=== PATIENT | male | born 1955 | race African-American/Black ===

== ENCOUNTER 2018-05-09 09:29 | Emergency (ER) | payer MEDICARE, OTHER ==
[~2018-05-09] VITALS: Ht 195.6 cm; Wt 124.3 kg
[~2018-05-09 09:29] MED LIST: BISACODYL5 MG ORAL; CIPROFLOXACIN500 M2 ORAL; COLACE100 MG ORAL; CYCLOBENZAPRINE10 MG ORAL; ERYTHROMYCIN3.5 GM LEFT EYE; FLAGYL500 MG ORAL; IBUPROFEN600 MG ORAL; NIFEDICAL XL30 MG ORAL; PENICILLIN V P500 MG ORAL; PREDNISONE10 M2 PO; TAMIFLU75 MG PO; UNOBMED; VICODIN 5-5001 EACH PO; ZESTRIL5 MG PO
[2018-05-09] MEDS ORDERED: ASPIR 8181 MG ORAL (09:39)
--- NOTE | 2018-05-09 09:46 | NUR ---
ED Nurse Note: PT WALKED IN TO ER TODAY FROM HOME. AOX4. PT C/O LEFT SIDED NECK PAIN, 8/10 THAT RADIATES TO HEAD X 5 DAYS AGO. PT DENIES DIZZINESS AND HAS STEADY GAIT IN ER. PT STATES HE HAS HX OF STROKE X 1 YEARS AGO. ON ASSESSMENT, BP: 147/107, HR: 84. ASYMPTOMATIC FOR STROKE, AND NO SIGNS OF RESPIRATORY DISTRESS OR SOB.
[2018-05-09 09:50] VITALS: BP 147/107
--- NOTE | 2018-05-09 10:36 | Emergency Room Report ---
History of Present Illness General Chief Complaint: Neck Pain Source: Patient Present Illness HPI 62-year-old male with a history of prostate cancer presents with left-sided neck pain that started 5 days ago when he woke up sleeping in abnormal position , he reports he is concerned because he was told he might have metastases to his bones but then was cleared later of any metastases. Eyes any numbness, tingling, weakness, falls, traumatic injuries, blurred vision, slurred speech, any other complaints, he reports he tried ibuprofen with only partial relief. First the pain is worse when he presses on his left sternocleidomastoid muscle or rotates his neck to often. Allergies: Coded Allergies: No Known Allergies (Unverified , 05/21/12) Patient History Past Medical History: see triage record Reviewed Nursing Documentation: PMH: Agreed; PSxH: Agreed Nursing Documentation-PMH Past Medical History: No History, Except For Hx Hypertension: Yes Hx Pacemaker: No Hx Asthma: No Hx COPD: No Hx Diabetes: No Hx Cancer: No Hx Gastrointestinal Problems: No Hx Dialysis: No History Of Psychiatric Problem: No Hx Neurological Problems: No Hx Cerebrovascular Accident: Yes - 'mini stroke' x 5 Hx Seizures: No Review of Systems All Other Systems: negative except mentioned in HPI Physical Exam Vital Signs Date Time Temp Pulse Resp B/P (MAP) Pulse Ox O2 Delivery O2 Flow Rate FiO2 05/09/18 09:33 97.9 86 16 147/85 98 Room Air Sp02 EP Interpretation: reviewed, normal General Appearance: no apparent distress, alert, non-toxic Head: normocephalic Eyes: bilateral eye normal inspection, bilateral eye PERRL, bilateral eye EOMI ENT: normal ENT inspection, hearing grossly normal, normal pharynx, no angioedema, normal voice, TMs + canals normal, uvula midline, moist mucus membranes Neck: normal inspection, full range of motion, supple, thyroid normal, no meningismus, no bony tend, no carotid bruits, supple/symm/no masses, tender lateral - Left sternocleidomastoid muscle, no overlying erythema warmth or deformities or crepitus Respiratory: chest non-tender, lungs clear, normal breath sounds, chest symmetrical, palpation of chest normal Cardiovascular #1: normal peripheral pulses, regular rate, rhythm Cardiovascular #2: 2+ radial (R), 2+ radial (L) Gastrointestinal: normal inspection, non tender, soft, no mass, no guarding, no rebound Rectal: deferred Genitourinary: normal inspection, no CVA tenderness Musculoskeletal: back normal, gait/station normal, normal range of motion, non- tender, no calf tenderness Neurologic: alert, responsive, documentation spec III-XII nml as tested, motor strength/tone normal, sensory intact, speech normal Psychiatric: judgement/insight normal, memory normal, mood/affect normal Skin: normal color, no rash, warm/dry, normal turgor Lymphatic: no adenopathy Medical Decision Making Diagnostic Impression: Primary Impression: Neck pain ER Course XR shows degenerative changes, no bony mets, will dc with reassurance, PMD f/u, dx msk neck pain Other X-Ray Diagnostic Results Other X-Ray Diagnostic Results : X-Ray ordered: c-spine # of Views/Limited Vs Complete: 3 View Indication: Pain EP Interpretation: Yes Interpretation: no dislocation, no soft tissue swelling, no fractures Impression: No acute disease Electronically Signed by: Elmer Carson MD Last Vital Signs Date Time Temp Pulse Resp B/P (MAP) Pulse Ox O2 Delivery O2 Flow Rate FiO2 05/09/18 09:50 98.2 78 18 147/107 96 Room Air Disposition: HOME, SELF-CARE Condition: Stable Referrals: NON PHYSICIAN (PCP) ELMER CARSON M.D May 09, 2018 10:36
[2018-05-09] MEDS ORDERED: Ketorolac 60mg Inj IM ONE (10:45)
[2018-05-09] MEDS ORDERED: Cyclobenzaprine 10mg Tab ORAL ONE (10:45)
--- NOTE | 2018-05-09 11:05 | NUR ---
ED Nurse Note: RADIOLOGY CALLED FOR XRAY
--- NOTE | 2018-05-09 11:40 | NUR ---
ED Nurse Note: PT BACK FROM CT VIA JENNIFER
[2018-05-09] MEDS ORDERED: IBUPROFEN600 MG ORAL (11:48)
[2018-05-09] MEDS ORDERED: CYCLOBENZAPRINE10 MG ORAL (11:48)
[2018-05-09 11:54] VITALS: BP 138/91
--- NOTE | 2018-05-09 11:55 | NUR ---
ER Nurse Note: PT LAYING PEACEFULLY IN BED IN NAD. AOX4. PRESCRIPTIONS AND DISCHARGE PAPERWORK EXPLAINED TO PT. PT VERBALIZES UNDERSTANDING AND ALL QUESTIONS WERE ANSWERED. PRESCRIPTION AND DISCHARGE PAPERWORK GIVEN TO PT AND ID WRISTBAND REMOVED. PT WALKED OUT OF ER WITH STEADY GAIT AND ALL BELONGINGS.
--- NOTE | 2018-05-09 12:02 | Diagnostic Imaging Report ---
Indication: Neck Pain Findings: 3 views of the cervical spine were obtained. Moderate osteophyte formation involving the vertebral endplates demonstrated multiple levels projecting anteriorly mostly. Alignment is normal. Bones are osteopenic. No obvious fracture identified. IMPRESSION: Moderate degenerative endplate spur formation
== END 2018-05-09 11:56 | disposition home or self-care (01) ==
LOC: EMR 10:14
DX: M54.2 Cervicalgia (principal); I10 Essential (primary) hypertension; Z86.73 Personal history of transient ischemic attack (TIA), and cerebral infarction without residual deficits
CPT/HCPCS: 72040; 96372; 99283

== ENCOUNTER 2019-02-28 13:03 | Emergency (ER) | payer MEDICARE, OTHER ==
[~2019-02-28] VITALS: Ht 195.6 cm; Wt 117.0 kg
[~2019-02-28 13:03] MED LIST changes: +ASPIR 8181 MG ORAL
--- NOTE | 2019-02-28 13:15 | NUR ---
ED Nurse Note: pt walked in c/o "popping ears" and flu like sx, pt reports he has been having cough with phlegm and congestion, difficulty breathing at night with chest discomfort for past five days and has sensation of ears popping and difficult to hear. no active cough at this time, will cont monitor.
[2019-02-28] MEDS ORDERED: MULTIVITAMINS1 EAC2 ORAL (13:25)
[2019-02-28 13:45] VITALS: BP 133/86
--- NOTE | 2019-02-28 14:20 | NUR ---
ED Nurse Note: pt resting at this time, vss, no sx distress noted, will cont monitor. safety precautions in place, pt advised to notify staff if needed assist.
[2019-02-28 14:36] LABS: BASOPHILS % (AUTO) 1.7 % (0.0-2.0); EOSINOPHILS % (AUTO) 1.6 % (0.0-3.0); HEMATOCRIT 43.5 % (42.0-52.0); LYMPHOCYTES % (AUTO) 31.9 % (20.0-45.0); MEAN CORPUSCULAR VOLUME 83 FL (80-99); MONOCYTES % (AUTO) 5.6 % (1.0-10.0); NEUTROPHILS % (AUTO) 59.2 % (45.0-75.0); PLATELET COUNT 293 K/UL (150-450); RED BLOOD COUNT 5.23 M/UL (4.70-6.10); RED CELL DISTRIBUTION WIDTH 12.5 % (11.6-14.8); WHITE BLOOD COUNT 4.9 K/UL (4.8-10.8)
--- NOTE | 2019-02-28 14:36 | Emergency Room Report ---
History of Present Illness General Chief Complaint: General Complaint Source: Patient Present Illness HPI Patient presents with fullness in his head and ringing in his ears that is been going on for several days. He is taking medication for blood pressure at this time. He took them before coming in today. He believes his blood pressure is part of the problem. He is undergoing a tremendous amount of stress. Status post recent prostatectomy. PSA was still elevated. For 3 months he has been taking Lupron. He is going to be seeing the doctor for radiation therapy soon. Patient is also complaining about some chest pain that is intermittent. He is talks about it going from his right side of his chest to the bottom left side. Is not exertional. Today there was some radiation to his left arm. He is not certain what brings this pain on. He denies pain at this time. Part of the stress is being and involved in a difficult marriage with a 36-year- old. Patient still smokes and also uses THC. Allergies: Coded Allergies: No Known Allergies (Unverified , 05/21/12) Patient History Past Medical History: see triage record Past Surgical History: other - Prostatectomy Social History: Reports: smoking, drug use - THC Social History Narrative telemarketing and in stressful marriage Reviewed Nursing Documentation: PMH: Agreed; PSxH: Agreed Nursing Documentation-PM Past Medical History: No History, Except For Hx Hypertension: Yes Hx Pacemaker: No Hx Asthma: No Hx COPD: No Hx Diabetes: No Hx Cancer: No Hx Gastrointestinal Problems: No Hx Dialysis: No Hx Neurological Problems: No Hx Cerebrovascular Accident: Yes - 'mini stroke' x 5 Hx Seizures: No Review of Systems All Other Systems: negative except mentioned in HPI Physical Exam Vital Signs Date Time Temp Pulse Resp B/P (MAP) Pulse Ox O2 Delivery O2 Flow Rate FiO2 02/28/19 13:07 98.6 104 17 177/80 (112) 95 Room Air Sp02 EP Interpretation: reviewed, normal General Appearance: well appearing, no apparent distress, GCS 15 Head: normocephalic, atraumatic Eyes: bilateral eye normal inspection, bilateral eye PERRL, bilateral eye EOMI ENT: normal pharynx, TMs + canals normal, moist mucus membranes Neck: supple Respiratory: lungs clear, normal breath sounds Cardiovascular #1: regular rate, rhythm Cardiovascular #2: 2+ radial (R) Gastrointestinal: normal inspection, normal bowel sounds, non tender, no mass, non-distended Musculoskeletal: back normal, gait/station normal, normal range of motion Neurologic: alert, oriented x3, grossly normal Psychiatric: mood/affect normal Skin: no rash, warm/dry Medical Decision Making Diagnostic Impression: Primary Impression: Labile hypertension Additional Impressions: Stress Prostate cancer Tinnitus Qualified Codes: H93.13 - Tinnitus, bilateral ER Course Patient presents with head fullness and ringing in his ears with decreased hearing for several days. Differential includes otitis media, serous otitis, congestion, hypertension amongst others. Patient will be evaluated EKG, chest x -ray and labs. EKG is very important because he is also complaining about some left-sided chest pain radiated down his left arm recently. Patient is placed on a city bailiff. The patient will be given a dose of an antihistamine. EKG normal sinus rhythm normal EKG. chest x-ray normal. Labs unremarkable. Patient symptoms improved with loratadine. In addition blood pressure is within normal limits. Discussed treatment plan with patient. No medical emergency at this time. Patient stable for outpatient observation and treatment. Last Vital Signs Date Time Temp Pulse Resp B/P (MAP) Pulse Ox O2 Delivery O2 Flow Rate FiO2 02/28/19 13:45 98.6 75 18 133/86 98 Room Air EKG Diagnostic Results Rate: normal Rhythm: NSR ST Segments: no acute changes Rhythm Strip Diag. Results EP Interpretation: yes Rhythm: NSR, no PVC's, no ectopy Chest X-Ray Diagnostic Results Chest X-Ray Diagnostic Results : Chest X-Ray Ordered: Yes # of Views/Limited/Complete: 1 View Indication: Other EP Interpretation: Yes Interpretation: no consolidation, no effusion, no pneumothorax Impression: No acute disease Electronically Signed by: Electronically signed by Los Swenson MD Last Vital Signs Date Time Temp Pulse Resp B/P (MAP) Pulse Ox O2 Delivery O2 Flow Rate FiO2 02/28/19 15:39 98.9 77 16 140/88 100 Room Air Status: improved Disposition: HOME, SELF-CARE Condition: Improved Scripts Chlorpheniramine Maleate (CHLOR-TRIMETON) 4 Mg Tablet 4 MG PO Q6HR PRN for ear ringing/congestion, #20 TAB Prov: Los Swenson MD 02/28/19 Referrals: NON PHYSICIAN (PCP) Los Swenson MD Feb 28, 2019 14:36
[2019-02-28 14:57] LABS: APPEARANCE,URINE CLEAR; BILIRUBIN, URINE NEGATIVE (NEGATIVE); COLOR,URINE YELLOW; GLUCOSE, URINE (UA) NEGATIVE (NEGATIVE); KETONES,URINE NEGATIVE (NEGATIVE); LEUKOCYTE ESTERASE ,URINE NEGATIVE (NEGATIVE); NITRITE,URINE NEGATIVE (NEGATIVE); PH,URINE 7 (4.5-8.0); PROTEIN,URINE NEGATIVE (NEGATIVE); UROBILINOGEN,URINE NORMAL MG/DL (0.0-1.0)
[2019-02-28 14:57] LABS: ANION GAP 7 mmol/L (5-15); BLOOD UREA NITROGEN 9 mg/dL (7-18); CALCIUM 9.8 MG/DL (8.5-10.1); CARBON DIOXIDE 29 MMOL/L (21-32); CHLORIDE 108 MMOL/L (98-107); SODIUM 144 MMOL/L (136-145)
[2019-02-28 15:08] LABS: ALANINE AMINOTRANSFERASE 25 U/L (12-78); ALBUMIN/GLOBULIN RATIO 1.5 (1.0-2.7); ALKALINE PHOSPHATASE 48 U/L (46-116); ASPARTATE AMINO TRANSFERASE 15 U/L (15-37); BILIRUBIN,TOTAL 1.2 MG/DL (0.2-1.0); CREATINE KINASE 130 U/L (26-308)
[2019-02-28 15:21] LABS: BILIRUBIN,DIRECT 0.3 MG/DL (0.0-0.3)
[2019-02-28 15:26] VITALS: BP 123/68
[2019-02-28] MEDS ORDERED: CHLOR-TRIMETON4 MG PO (15:26)
--- NOTE | 2019-02-28 15:31 | Diagnostic Imaging Report ---
EXAM: XR Chest, 1 View CLINICAL HISTORY: CP TECHNIQUE: Frontal view of the chest. COMPARISON: Chest x-ray 9 17 16 FINDINGS: Lungs: Unremarkable. No consolidation. Pleural space: Unremarkable. No pneumothorax. Heart: Unremarkable. No cardiomegaly. Mediastinum: Unremarkable. Bones joints: Unremarkable. IMPRESSION: No acute process.
--- NOTE | 2019-02-28 15:37 | NUR ---
ED Nurse Note: pt cleared to be d/c per ERMD, pt discharge and aftercare instruction provided w/ prescription, pt education done via discussion and handout, pt advised to follow up with pcp or return to ED if changes in condition, vss, ambulatory w/ steady gait, left w/ all belongings, iv d/c, pt id band given to pt per pt's req, pt advised not to throw away pt's id band in trash, pt verbalized understanding and agrees with plan of care.
[2019-02-28 15:39] VITALS: BP 140/88
--- NOTE | 2019-03-01 16:18 | Cardiology Report ---
APPROVED REPORT EKG Measurement Heart [id number] Normal sinus rhythm Normal ECG
== END 2019-02-28 15:39 | disposition home or self-care (01) ==
LOC: EMR 13:40
DX: I10 Essential (primary) hypertension (principal); F43.9 Reaction to severe stress, unspecified; H93.13 Tinnitus, bilateral; C61 Malignant neoplasm of prostate; Z90.79 Acquired absence of other genital organ(s); F17.200 Nicotine dependence, unspecified, uncomplicated; Z86.73 Personal history of transient ischemic attack (TIA), and cerebral infarction without residual deficits; R07.9 Chest pain, unspecified; F12.90 Cannabis use, unspecified, uncomplicated
CPT/HCPCS: 36415; 71045; 80053; 80307; 81003; 82248; 82550; 83880; 84484; 85025; 85610; 85730; 93005; 99284

== ENCOUNTER 2019-06-03 09:47 | Emergency (ER) | payer MEDICARE, OTHER ==
[~2019-06-03] VITALS: Ht 195.6 cm; Wt 119.3 kg
[~2019-06-03 09:47] MED LIST changes: +CHLOR-TRIMETON4 MG PO; +MULTIVITAMINS1 EAC2 ORAL
--- NOTE | 2019-06-03 09:50 | NUR ---
pt. in the bathroom
--- NOTE | 2019-06-03 09:55 | NUR ---
ED Nurse Note: patient walked into ED from home, reports he got radiation today for this metastatic prostate cancer. patient c/o urinary frequency, urgency, and hematuria, and right flank pain today. his [place] doctor recommended him to come to ED. patient is alert awake x4 ambulatory steady gait, on a hopsital gown. able to speak in full sentences, in no acute distress. pillows provided.
[2019-06-03 10:14] LABS: APPEARANCE,URINE CLEAR; BILIRUBIN, URINE NEGATIVE (NEGATIVE); COLOR,URINE PALE YELLOW; GLUCOSE, URINE (UA) NEGATIVE (NEGATIVE); KETONES,URINE NEGATIVE (NEGATIVE); LEUKOCYTE ESTERASE ,URINE 1+ (NEGATIVE); NITRITE,URINE NEGATIVE (NEGATIVE); PH,URINE 7 (4.5-8.0); PROTEIN,URINE NEGATIVE (NEGATIVE); UROBILINOGEN,URINE NORMAL MG/DL (0.0-1.0)
[2019-06-03] MEDS ORDERED: Omnipaque-300 100ml vial INJ PRN (10:15)
--- NOTE | 2019-06-03 10:15 | Emergency Room Report ---
History of Present Illness General Chief Complaint: Male Urogenital Problems Source: Patient Present Illness HPI 63-year-old male history of prostate cancer undergoing radiation, presents with dysuria, started yesterday, Right flank pain, achy in nature no aggravating alleviating factors severity is moderate, constant patient presents for evaluation Allergies: Coded Allergies: No Known Allergies (Unverified , 05/21/12) Patient History Past Medical History: see triage record Reviewed Nursing Documentation: PMH: Agreed; PSxH: Agreed Nursing Documentation-PMH Past Medical History: No History, Except For Hx Hypertension: Yes - pneumothorax Hx Pacemaker: No Hx Asthma: No Hx COPD: No Hx Diabetes: No Hx Cancer: Yes Hx Gastrointestinal Problems: No Hx Dialysis: No Hx Neurological Problems: No Hx Cerebrovascular Accident: Yes - x 5 Hx Seizures: No Review of Systems All Other Systems: negative except mentioned in HPI Physical Exam Vital Signs Date Time Temp Pulse Resp B/P (MAP) Pulse Ox O2 Delivery O2 Flow Rate FiO2 06/03/19 09:50 97.3 82 Sp02 EP Interpretation: reviewed, normal General Appearance: well appearing, no apparent distress, alert Head: normocephalic, atraumatic Eyes: bilateral eye PERRL, bilateral eye EOMI ENT: uvula midline, moist mucus membranes Neck: supple, thyroid normal, supple/symm/no masses Respiratory: lungs clear, no respiratory distress, no retraction, no accessory muscle use Cardiovascular #1: normal peripheral pulses, regular rate, rhythm, no edema, no gallop, no murmur Gastrointestinal: non tender, soft, no guarding, no rebound Genitourinary: CVA tenderness (R) Musculoskeletal: normal inspection Neurologic: alert, oriented x3 Psychiatric: mood/affect normal Skin: no rash, warm/dry Medical Decision Making Diagnostic Impression: Primary Impression: UTI (urinary tract infection) Qualified Codes: N30.00 - Acute cystitis without hematuria Additional Impressions: Elevated lipase Pancreatitis Qualified Codes: K85.90 - Acute pancreatitis without necrosis or infection, unspecified ER Course 63-year-old male presents with right flank pain, dysuria, differential diagnosis includes UTI, pyelonephritis, abdominal pain Given history of recent chemo, now with right flank pain, will start antibiotics empirically will check for infection additionally will obtain advanced imaging to see if there is a foci for infection Patient with UTI ceftriaxone given Patient with an elevated lipase, normal liver enzymes, counseled patient that he needs to be admitted to the hospital for possible pancreatitis which may be a medication side effect versus radiation side effect Patient states he is following up with his doctor tomorrow and wants to leave AGAINST MEDICAL ADVICE The patient has requested to leave the ED against medical advice. The patient reason(s) for leaving include, but are not limited to, the following: doesn't want to be admitted. I believe this patient is of sound mind and competent to refuse medical care. The patient is responding and asking questions appropriately. The patient is oriented to person, place and time. The patient is not psychotic, delusional, suicidal, homicidal or hallucinating. The patient demonstrates a normal mental capacity to make decisions regarding their healthcare. The patient is clinically sober and does not appear to be under the influence of any illicit drugs at this time. The patient has been advised of the risks, in layman terms, of leaving AMA which include, but are not limited to , coma, permanent disability, loss of current lifestyle, delay in diagnosis. Alternatives have been offered - the patient remains steadfast in their wish to leave. The patient has been advised that should they change their mind they are welcome to return to this hospital, or any other, at any time. The patient understands that in no way does an AMA discharge mean that I do not want them to have the best medical care available. To this end, I have provided appropriate prescriptions, referrals, and discharge instructions. The patient did sign AMA paperwork. The above discussion was witnessed by another member of staff. Laboratory Tests Test 06/03/19 09:00 06/03/19 10:10 Urine Color Pale yellow Urine Appearance Clear Urine pH 7 (4.5-8.0) Urine Specific Howard 1.005 (1.005-1.035) Urine Protein Negative (NEGATIVE) Urine Glucose (UA) Negative (NEGATIVE) Urine Ketones Negative (NEGATIVE) Urine Blood 2+ (NEGATIVE) H Urine Nitrite Negative (NEGATIVE) Urine Bilirubin Negative (NEGATIVE) Urine Urobilinogen Normal MG/DL (0.0-1.0) Urine Leukocyte Esterase 1+ (NEGATIVE) H Urine RBC 0-2 /HPF (0 - 0) H Urine WBC 0-2 /HPF (0 - 0) Urine Squamous Epithelial Cells Occasional /LPF Urine Bacteria Occasional /HPF (NONE) White Blood Count 3.2 K/UL (4.8-10.8) L Red Blood Count 5.11 M/UL (4.70-6.10) Hemoglobin 14.3 G/DL (14.2-18.0) Hematocrit 43.7 % (42.0-52.0) Mean Corpuscular Volume 85 FL (80-99) Mean Corpuscular Hemoglobin 28.0 PG (27.0-31.0) Mean Corpuscular Hemoglobin Concent 32.8 G/DL (32.0-36.0) Red Cell Distribution Width 12.9 % (11.6-14.8) Platelet Count 309 K/UL (150-450) Mean Platelet Volume 6.0 FL (6.5-10.1) L Neutrophils (%) (Auto) % (45.0-75.0) Lymphocytes (%) (Auto) % (20.0-45.0) Monocytes (%) (Auto) % (1.0-10.0) Eosinophils (%) (Auto) % (0.0-3.0) Basophils (%) (Auto) % (0.0-2.0) Differential Total Cells Counted 100 Neutrophils % (Manual) 66 % (45-75) Lymphocytes % (Manual) 21 % (20-45) Monocytes % (Manual) 11 % (1-10) H Eosinophils % (Manual) 2 % (0-3) Basophils % (Manual) 0 % (0-2) Band Neutrophils 0 % (0-8) Platelet Estimate Adequate Platelet Morphology Normal Red Blood Cell Morphology Normal Sodium Level 140 MMOL/L (136-145) Potassium Level 4.2 MMOL/L (3.5-5.1) Chloride Level 106 MMOL/L (98-107) Carbon Dioxide Level 25 MMOL/L (21-32) Anion Gap 9 mmol/L (5-15) Blood Urea Nitrogen 16 mg/dL (7-18) Creatinine 0.9 MG/DL (0.55-1.30) Estimate Glomerular Filtration Rate > 60 mL/min (>60) Glucose Level 93 MG/DL (74-106) Calcium Level 9.5 MG/DL (8.5-10.1) Total Bilirubin 0.7 MG/DL (0.2-1.0) Aspartate Amino Transferase (AST) 16 U/L (15-37) Alanine Aminotransferase (ALT) 28 U/L (12-78) Alkaline Phosphatase 56 U/L (46-116) Total Protein 7.5 G/DL (6.4-8.2) Albumin 4.0 G/DL (3.4-5.0) Globulin 3.5 g/dL Albumin/Globulin Ratio 1.1 (1.0-2.7) Lipase 1879 U/L (73-393) H Last Vital Signs Date Time Temp Pulse Resp B/P (MAP) Pulse Ox O2 Delivery O2 Flow Rate FiO2 06/03/19 09:50 97.3 82 Disposition: HOME, SELF-CARE Condition: Stable Scripts Cephalexin* (KEFLEX*) 500 Mg Capsule 500 MG ORAL EVERY 6 HOURS, #28 CAP Prov: Jarett Kelly MD 06/03/19 Lidocaine Patch* (Lidoderm Patch*) 1 Each Adh..patch 1 PATCH TOPIC DAILY, #7 PATCH 0 Refills Patch(es) may remain in place for up to 12 hours in any 24-hour period. Prov: Jarett Kelly MD 06/03/19 Referrals: ANUJA PHILLIPS MD (PCP) Patient Instructions: Acute Pancreatitis, [id number], Lipase Test, Urinary Tract Infection Additional Instructions: The patient was provided with discharge instructions, notified to follow-up with a primary care doctor and or specialist in the next 24-48 hours, and to return to the ED if they have worsening of their symptoms. Please note that this report is being documented using [employer] technology. This can lead to erroneous entry secondary to incorrect interpretation by the dictating instrument. Jarett Kelly MD Jun 03, 2019 10:15
[2019-06-03 10:29] LABS: HEMATOCRIT 43.7 % (42.0-52.0); HEMOGLOBIN 14.3 G/DL (14.2-18.0); MEAN CORPUSCULAR VOLUME 85 FL (80-99); PLATELET COUNT 309 K/UL (150-450); RED BLOOD COUNT 5.11 M/UL (4.70-6.10); RED CELL DISTRIBUTION WIDTH 12.9 % (11.6-14.8); WHITE BLOOD COUNT 3.2 K/UL (4.8-10.8)
[2019-06-03] MEDS ORDERED: cefTRIAXone 1 GM in NS 55 ML IVPB ONE (10:45)
[2019-06-03 10:58] LABS: ALANINE AMINOTRANSFERASE 28 U/L (12-78); ALBUMIN/GLOBULIN RATIO 1.1 (1.0-2.7); ALKALINE PHOSPHATASE 56 U/L (46-116); ANION GAP 9 mmol/L (5-15); ASPARTATE AMINO TRANSFERASE 16 U/L (15-37); BILIRUBIN,TOTAL 0.7 MG/DL (0.2-1.0); BLOOD UREA NITROGEN 16 mg/dL (7-18); CALCIUM 9.5 MG/DL (8.5-10.1); CARBON DIOXIDE 25 MMOL/L (21-32); CHLORIDE 106 MMOL/L (98-107); CREATININE 0.9 MG/DL (0.55-1.30); POTASSIUM 4.2 MMOL/L (3.5-5.1); SODIUM 140 MMOL/L (136-145)
[2019-06-03 12:34] VITALS: BP 131/75
--- NOTE | 2019-06-03 12:50 | Diagnostic Imaging Report ---
Clinical Indication: This area and right flank pain Technique: No oral contrast utilized, per emergency room physician request IV administration nonionic contrast. Venous phase spiral acquisition obtained through the abdomen and pelvis. Multiplanar reconstructions were generated. Total dose length product 941 mGycm. CTDIvol(s) 16 mGy. Dose reduction achieved using automated exposure control Comparison: 07/28/2015 Findings: Lack of enteric contrast limits assessment of the GI tract. Again demonstrated are bilateral fat-containing hernias. There is colonic diverticulosis. No evidence of diverticulitis. The appendix is not definitely visualized, but there are no findings to suggest acute appendicitis. No small bowel distention. No free or loculated intraperitoneal gas or fluid is evident. The distal esophagus, stomach, duodenum are unremarkable. Gallbladder demonstrates a gallstone, not evident previously. The liver demonstrates a subcentimeter low-attenuation lesion in segment 4A which is too small to characterize. No biliary ductal dilatation. The pancreas, spleen are unremarkable. The adrenals again demonstrated small low-attenuation masses bilaterally, unchanged and consistent with benign adenomas. The kidneys demonstrate bilateral fluid attenuation cysts. No renal or ureteral calculi, hydronephrosis, or hydroureter. The bladder demonstrates mild wall thickening, this could be an artifact of under distention. No pelvic mass or adenopathy. The prostate is not clearly visualized. This is a new finding since the prior study, which demonstrated massive prostatomegaly. No retroperitoneal or mesenteric mass or adenopathy. No pelvic mass or adenopathy. When compared to prior exam, previously demonstrated perisigmoid fat stranding is no longer evident. Impression: Limited assessment of the GI tract, due to lack of enteric contrast administration Nonvisualized prostate, likely related to stated clinical history of radiation therapy. Correlate as to whether there is any history of interim prostatectomy as well Equivocal mild bladder wall thickening, more likely artifact of under distention but cystitis possible Colonic diverticulosis. No evidence of diverticulitis. Previously demonstrated peridiverticular inflammation has resolved Small bilateral adrenal adenomata again demonstrated Cholelithiasis, not evident previously Other findings as noted, including bilateral fat-containing inguinal hernias, subcentimeter low-attenuation liver lesion, bilateral renal cysts The CT scanner at [facility] is accredited by the [employer] and the scans are performed using protocols designed to limit radiation exposure to as low as reasonably achievable to attain images of sufficient resolution adequate for diagnostic evaluation.
[2019-06-03] MEDS ORDERED: LIDODERM700 M1 TOPIC (13:15)
[2019-06-03] MEDS ORDERED: CEPHALEXIN500 MG ORAL (13:15)
--- NOTE | 2019-06-03 13:24 | NUR ---
AMA: SEE AMA FORM. DR. Kelly explained the risks of leaving against medical advice. patient verbalized understanding. patient signed ama form. pt is aox4, on room air, with stable vital signs. pt was given dc and prescription instructions, pt was able to verbalize understanding, pt id band and iv site removed without complications. pt is able to ambulate with steady gait. pt took all belongings. patient reports he will come back to ED if symptoms get worse, he will monitor him at home.
[2019-06-03 13:25] VITALS: BP 131/75
== END 2019-06-03 13:26 | disposition home or self-care (01) ==
LOC: EMR 10:10
DX: N30.00 Acute cystitis without hematuria (principal); K85.90 Acute pancreatitis without necrosis or infection, unspecified; R74.8 Abnormal levels of other serum enzymes; I10 Essential (primary) hypertension; C61 Malignant neoplasm of prostate; Z86.73 Personal history of transient ischemic attack (TIA), and cerebral infarction without residual deficits
CPT/HCPCS: 36415; 74177; 80053; 81003; 83690; 85007; 85025; 96361; 96365; 99284; J0696; J7030; Q9967

== ENCOUNTER 2019-11-27 10:55 | Emergency (ER) | payer MEDICARE, OTHER ==
[~2019-11-27] VITALS: Ht 185.4 cm; Wt 122.9 kg
[~2019-11-27 10:55] MED LIST changes: +CEPHALEXIN500 MG ORAL; +LIDODERM700 M1 TOPIC
[2019-11-27 11:12] VITALS: BP 149/92
[2019-11-27] MEDS ORDERED: LIPITOR80 MG ORAL (11:12)
[2019-11-27] MEDS ORDERED: ERLEADA60 MG PO (11:13)
[2019-11-27 11:48] LABS: HEMATOCRIT 45.9 % (42.0-52.0); HEMOGLOBIN 14.2 G/DL (14.2-18.0); MEAN CORPUSCULAR VOLUME 87 FL (80-99); PLATELET COUNT 241 K/UL (150-450); RED BLOOD COUNT 5.27 M/UL (4.70-6.10); WHITE BLOOD COUNT 3.3 K/UL (4.8-10.8)
[2019-11-27 12:03] LABS: INR 0.9 (0.9-1.1)
[2019-11-27 12:07] LABS: ANION GAP 6 mmol/L (5-15); BLOOD UREA NITROGEN 15 mg/dL (7-18); CALCIUM 10.5 MG/DL (8.5-10.1); CARBON DIOXIDE 29 MMOL/L (21-32); CHLORIDE 106 MMOL/L (98-107); CREATININE 1.1 MG/DL (0.55-1.30); POTASSIUM 3.8 MMOL/L (3.5-5.1); SODIUM 141 MMOL/L (136-145)
[2019-11-27 12:11] LABS: ALANINE AMINOTRANSFERASE 22 U/L (12-78); ALBUMIN 3.8 G/DL (3.4-5.0); ALBUMIN/GLOBULIN RATIO 1.3 (1.0-2.7); ALKALINE PHOSPHATASE 48 U/L (46-116); ASPARTATE AMINO TRANSFERASE 21 U/L (15-37); BILIRUBIN,TOTAL 0.5 MG/DL (0.2-1.0)
--- NOTE | 2019-11-27 13:29 | Diagnostic Imaging Report ---
CT HEAD WITHOUT CONTRAST INDICATION: Reason For Exam: SYNCOPE Technique: Continuous helical CT scanning of the head was performed without intravenous contrast material. Axial and coronal 5 mm sections were generated. Radiation dose was minimized using automated exposure control DOSE: Total Dose Length Product - DLP 1045.[address] Dose Index - CTDIvol(s) 2 3.4 mGy. COMPARISON: CT head dated 09/23/2015 FINDINGS: There is no acute intracranial hemorrhage, mass effect or cortical edema. There are patchy subcortical and periventricular white matter hypodensities, likely representing chronic ischemic microvascular disease. Mild cortical cerebral volume loss The ventricles, cisterns and sulci are normal for age. Mastoid air cells are clear. Moderate right maxillary sinus mucus retention cyst. No displaced skull fracture. Nonspecific subcutaneous calcification in the right frontal scalp. IMPRESSION: No evidence of acute intracranial hemorrhage, mass effect or cortical edema. MRI may be obtained for more sensitive evaluation as clinically indicated. The CT scanner at [facility] is accredited by the [employer] and the scans are performed using protocols designed to limit radiation exposure to as low as reasonably achievable to attain images of sufficient resolution adequate for diagnostic evaluation.
[2019-11-27 13:54] VITALS: BP 135/78
--- NOTE | 2019-11-27 14:45 | Emergency Room Report ---
History of Present Illness General Chief Complaint: Syncope Source: Patient Present Illness HPI Disclaimer: Please note that this report is being documented using [employer] technology. This can lead to erroneous entry secondary to incorrect interpretation by the dictating instrument. HPI: This is a 64-year-old male history of stroke, hypertension, prostate cancer presents for a syncopal episode. Patient states he jumped out of bed this morning standing up very rapidly felt dizzy and then passed out. Currently in the ER he is alert and ambulatory and denies any headache, nausea, vomiting, chest pain or shortness of breath. He has been eating and drinking normally. He does report intermittent dizzy spells for the past couple of weeks where he gets lightheaded but today was the first time he passed out. He is otherwise been in his normal health. He exercises regularly. Allergies: Coded Allergies: No Known Allergies (Unverified , 05/21/12) COVID-19 Screening Contact w/high risk pt: No Experienced COVID-19 symptoms?: No COVID-19 Testing performed [employer] ATTENDANT: No Patient History Reviewed Nursing Documentation: PMH: Agreed; PSxH: Agreed Nursing Documentation-PMH Hx Hypertension: Yes - pneumothorax Hx Pacemaker: No Hx Asthma: No Hx COPD: No Hx Diabetes: No Hx Cancer: Yes Hx Gastrointestinal Problems: No Hx Dialysis: No Hx Neurological Problems: No Hx Cerebrovascular Accident: Yes - x 5 Hx Seizures: No Review of Systems All Other Systems: negative except mentioned in HPI Physical Exam Vital Signs Date Time Temp Pulse Resp B/P (MAP) Pulse Ox O2 Delivery O2 Flow Rate FiO2 11/27/19 11:08 97.9 70 18 149/92 (111) 97 Room Air Sp02 EP Interpretation: reviewed, normal General Appearance: well appearing, no apparent distress Head: normocephalic, atraumatic Eyes: bilateral eye PERRL, bilateral eye EOMI ENT: hearing grossly normal, moist mucus membranes Neck: full range of motion, supple Respiratory: lungs clear, normal breath sounds, no rhonchi, no respiratory distress, no retraction, no wheezing Cardiovascular #1: normal peripheral pulses, regular rate, rhythm, no murmur Gastrointestinal: non tender, soft, non-distended, no guarding Neurologic: alert, motor strength/tone normal, form setter metal road forms III-XII nml as tested, oriented x3, sensory intact, cerebellar normal, normal gait, no focal defects Skin: normal color, warm/dry Medical Decision Making Diagnostic Impression: Primary Impression: Syncope ER Course MDM: Differential included orthostasis, dehydration, arrhythmia, less likely stroke Clinical course-IV inserted, IV fluids given, EKG did not have any ischemic changes or evidence of arrhythmia. Laboratory studies showed no evidence of anemia. CT scan of the brain showed no acute hemorrhage. Patient had no complaints in the ER including no headache chest pain or shortness of breath. Work-up essentially negative. As patient has had multiple "dizzy spells" over the past 2 weeks I did recommend and offer admission the hospital for further observation however patient declined admission at this time. He wished to be discharged home and will follow-up as an outpatient. Labs - Laboratory Tests Test 11/27/19 11:30 White Blood Count 3.3 K/UL (4.8-10.8) L Red Blood Count 5.27 M/UL (4.70-6.10) Hemoglobin 14.2 G/DL (14.2-18.0) Hematocrit 45.9 % (42.0-52.0) Mean Corpuscular Volume 87 FL (80-99) Mean Corpuscular Hemoglobin 27.0 PG (27.0-31.0) Mean Corpuscular Hemoglobin Concent 31.0 G/DL (32.0-36.0) L Red Cell Distribution Width 13.0 % (11.6-14.8) Platelet Count 241 K/UL (150-450) Mean Platelet Volume 7.0 FL (6.5-10.1) Neutrophils (%) (Auto) % (45.0-75.0) Lymphocytes (%) (Auto) % (20.0-45.0) Monocytes (%) (Auto) % (1.0-10.0) Eosinophils (%) (Auto) % (0.0-3.0) Basophils (%) (Auto) % (0.0-2.0) Differential Total Cells Counted 100 Neutrophils % (Manual) 65 % (45-75) Lymphocytes % (Manual) 23 % (20-45) Monocytes % (Manual) 9 % (1-10) Eosinophils % (Manual) 3 % (0-3) Basophils % (Manual) 0 % (0-2) Band Neutrophils 0 % (0-8) Platelet Estimate Adequate Platelet Morphology Normal Red Blood Cell Morphology Normal Prothrombin Time 10.0 SEC (9.30-11.50) Prothrombin Time INR 0.9 (0.9-1.1) Activated Partial Thromboplast Time 25 SEC (23-33) Sodium Level 141 MMOL/L (136-145) Potassium Level 3.8 MMOL/L (3.5-5.1) Chloride Level 106 MMOL/L (98-107) Carbon Dioxide Level 29 MMOL/L (21-32) Anion Gap 6 mmol/L (5-15) Blood Urea Nitrogen 15 mg/dL (7-18) Creatinine 1.1 MG/DL (0.55-1.30) Estimated Glomerular Filtration Rate > 60 mL/min (>60) Glucose Level 120 MG/DL (74-106) H Calcium Level 10.5 MG/DL (8.5-10.1) H Total Bilirubin 0.5 MG/DL (0.2-1.0) Aspartate Amino Transferase (AST) 21 U/L (15-37) Alanine Aminotransferase (ALT) 22 U/L (12-78) Alkaline Phosphatase 48 U/L (46-116) Troponin I 0.005 ng/mL (0.000-0.056) Total Protein 6.8 G/DL (6.4-8.2) Albumin 3.8 G/DL (3.4-5.0) Globulin 3.0 g/dL Albumin/Globulin Ratio 1.3 (1.0-2.7) On reevaluation: Patient remained in no acute distress nontoxic-appearing and neurologically intact Plan-patient discharged home with follow-up with PMD and return precautions. EKG Diagnostic Results Rate: normal Rhythm: NSR Other Impression No acute changes Chest X-Ray Diagnostic Results Chest X-Ray Diagnostic Results : Chest X-Ray Ordered: Yes # of Views/Limited/Complete: 1 View Indication: Shortness of Breath EP Interpretation: Yes Interpretation: no consolidation, no effusion, no pneumothorax Impression: No acute disease Electronically Signed by: Arpit Dallas MD Last Vital Signs Date Time Temp Pulse Resp B/P (MAP) Pulse Ox O2 Delivery O2 Flow Rate FiO2 11/27/19 13:54 97.9 72 16 135/78 97 Room Air Status: improved Disposition: HOME, SELF-CARE Condition: Stable Patient Instructions: Syncope Additional Instructions: Patient is instructed to follow-up with her primary care doctor, primary care clinic or formerly [facility] in 1 to 2 days. Patient instructed to return for any worsening symptoms or concerns. Disclaimer: Please note that this report is being documented using [employer] technology. This can lead to erroneous entry secondary to incorrect interpretation by the dictating instrument. Arpit Dallas M.D. Nov 27, 2019 14:45
--- NOTE | 2019-11-27 15:00 | Diagnostic Imaging Report ---
Indication: Reason For Exam: SYNCOPE Technique: Single AP view of the chest. Comparison: Chest radiograph dated 02/28/2019 Findings: The cardiomediastinal silhouette is unchanged in appearance. There is new increased density in the left midlung. No pneumothorax or pleural effusion. No acute osseous abnormality. 12 mm left upper lobe nodule is unchanged since at least 2016. IMPRESSION: Increased density left midlung, which could represent overlapping soft tissue shadows versus new airspace opacities. Pneumonia should be excluded clinically.
== END 2019-11-27 13:54 | disposition home or self-care (01) ==
LOC: EMR 12:00
DX: R55 Syncope and collapse (principal); Z86.73 Personal history of transient ischemic attack (TIA), and cerebral infarction without residual deficits
CPT/HCPCS: 36415; 70450; 71045; 80053; 84484; 85007; 85025; 85610; 85730; 93005; 96360; 99284

== ENCOUNTER 2020-01-28 13:22 | Emergency (ER) | payer MEDICARE, OTHER ==
[~2020-01-28] VITALS: Ht 195.6 cm; Wt 122.5 kg
[~2020-01-28 13:22] MED LIST changes: +ERLEADA60 MG PO; +LIPITOR80 MG ORAL
--- NOTE | 2020-01-28 13:22 | NUR ---
Darrion tom in EDM - 01/28/20 at 1432 by SHAGGY ED Nurse Note: Blood sample collected and sent to lab
--- NOTE | 2020-01-28 13:32 | NUR ---
ED Nurse Note: PT walked in to ed for C/O 01/29 non radiating chest pain x 4 days. pt reports drinking monster energy drink almost every day x 6 month daryl . pt also reports his arms feeling numb
[2020-01-28 13:33] VITALS: BP 142/80
--- NOTE | 2020-01-28 13:35 | NUR ---
ED Nurse Note: Blood sample collected and sent to lab
--- NOTE | 2020-01-28 14:03 | Emergency Room Report ---
History of Present Illness General Chief Complaint: Chest Pain Source: Patient Present Illness HPI 64-year-old male presents emergency department complaining of 8 out of 10 in severity left-sided chest pain x4 days. Patient reports exacerbation upon sitting up or raising his left arm. Patient reports he also has some pain when he takes deep breaths. Patient states that his pain has improved since acute onset 4 days ago. He denies nausea or vomiting. Patient does report history of gastritis and states that he cannot find his medication that he normally takes for it. Patient is also suspicious that his symptoms may be caused by an increase in frequency of drinking monster energy drinks lately. Patient has a history of prostate cancer that has been resolved for 3 years and has a history of high blood pressure and several mini strokes in the past. He is no longer taking medication for that x1 month. He denies fevers or chills. He denies cough, shortness of breath, wheezing, dizziness, headache, neck pain or stiffness. He denies paresthesias. He reports hx of smoking THC. His PmHx consists of HTN, Prostate cancer and pneumothorax. Allergies: Coded Allergies: No Known Allergies (Unverified , 05/21/12) COVID-19 Screening Contact w/high risk pt: No Experienced COVID-19 symptoms?: No COVID-19 Testing performed DESKTOP PUBLISHING SPECIALIST: No Patient History Past Medical History: see triage record Past Surgical History: none Pertinent Family History: none Reviewed Nursing Documentation: PMH: Agreed; PSxH: Agreed Nursing Documentation-PMH Past Medical History: No History, Except For Hx Hypertension: Yes - pneumothorax Hx Pacemaker: No Hx Asthma: No Hx COPD: No Hx Diabetes: No Hx Cancer: Yes Hx Gastrointestinal Problems: No Hx Dialysis: No Hx Neurological Problems: No Hx Cerebrovascular Accident: Yes - x 5 Hx Seizures: No Review of Systems All Other Systems: negative except mentioned in HPI Physical Exam Vital Signs Date Time Temp Pulse Resp B/P (MAP) Pulse Ox O2 Delivery O2 Flow Rate FiO2 01/28/20 13:25 98.1 90 18 142/80 (100) 98 Room Air Sp02 EP Interpretation: reviewed, normal General Appearance: no apparent distress, alert, GCS 15, non-toxic Head: normocephalic, atraumatic Eyes: bilateral eye normal inspection, bilateral eye PERRL ENT: hearing grossly normal, normal voice Neck: full range of motion Respiratory: chest non-tender, lungs clear, normal breath sounds, no respira tory distress, no accessory muscle use, no wheezing, speaking full sentences, other - Chest pain is reproducible with palpation on the left lower aspect of the anterior and lateral chest on the left side Cardiovascular #1: regular rate, rhythm, no edema, normal capillary refill Gastrointestinal: normal bowel sounds, non tender, soft, non-distended, no guarding Musculoskeletal: normal range of motion, gait/station normal, non-tender Neurologic: alert, motor strength/tone normal, oriented x3, sensory intact, responsive, speech normal Psychiatric: judgement/insight normal Skin: no rash, normal color Lymphatic: no adenopathy Medical Decision Making PA Attestation Dr. Joe is my supervising Physician whom patient management has been discussed with. Diagnostic Impression: Primary Impression: Chest pain with high risk for cardiac etiology ER Course 64-year-old male presents emergency department complaining of 8 out of 10 in severity left-sided chest pain x4 days. Patient reports exacerbation upon sitting up or raising his left arm. Patient reports he also has some pain when he takes deep breaths. Patient states that his pain has improved since acute onset 4 days ago. He denies nausea or vomiting. Patient does report history of gastritis and states that he cannot find his medication that he normally takes for it. Patient is also suspicious that his symptoms may be caused by an increase in frequency of drinking monster energy drinks lately. Patient has a history of prostate cancer that has been resolved for 3 years and has a history of high blood pressure and several mini strokes in the past. He is no longer taking medication for that x1 month. He denies fevers or chills. He denies cough, shortness of breath, wheezing, dizziness, headache, neck pain or stiff ness. He denies paresthesias. He reports hx of smoking THC. His PmHx consists of HTN, Prostate cancer and pneumothorax. Ddx considered but are not limited to [place], pneumonia, contusion, costochondritis, PE, ACS, Shoulder strain, Chest wall contusion. aortic dissection. Vital signs: are WNL, pt. is afebrile H&PE are most consistent with CP most likely of muscular etiology/gastritis. Patient does have risk factors for cardiac pathology and this will be ruled out with labs and EKG. ORDERS: - EK SNR, no acute ST changes. No ASA given in the ED. -CBC: WNL -CMP: WNL -Troponin: WNL CXR: Unremarkable -D-Dimer: Pending at time of AMA ED INTERVENTIONS: - PT. placed on cardiac monitoring. - Pepcid IV -Toradol IV --Pt. reports his symptoms have completely resolved and he feels much better and is requesting to be d/c. He does not want to wait for the final D-Dimer results. DISPOSITION:AMA. - At this time the patient is requesting to leave AGAINST MEDICAL ADVICE. I believe that this patient has the capacity to make decisions on his own. I discussed with the patient the risks of leaving AMA. Some of these risks include delay in diagnosis and treatment, as well as worsening of symptoms, organ damage, and permanent disability or even . After discussing these risks with the patient. He continues to express his want to leave AGAINST MEDICAL ADVICE. I encouraged the patient to return at any time, and that he will be welcome here in the emergency department to continue medical management. Labs Test 01/28/20 13:00 White Blood Count 4.7 K/UL (4.8-10.8) Red Blood Count 4.87 M/UL (4.70-6.10) Hemoglobin 13.5 G/DL (14.2-18.0) Hematocrit 39.8 % (42.0-52.0) Mean Corpuscular Volume 82 FL (80-99) Mean Corpuscular Hemoglobin 27.7 PG (27.0-31.0) Mean Corpuscular Hemoglobin Concent 33.8 G/DL (32.0-36.0) Red Cell Distribution Width 12.8 % (11.6-14.8) Platelet Count 263 K/UL (150-450) Mean Platelet Volume 6.1 FL (6.5-10.1) Neutrophils (%) (Auto) 63.4 % (45.0-75.0) Lymphocytes (%) (Auto) 21.7 % (20.0-45.0) Monocytes (%) (Auto) 7.6 % (1.0-10.0) Eosinophils (%) (Auto) 1.9 % (0.0-3.0) Basophils (%) (Auto) 5.5 % (0.0-2.0) D-Dimer 0.58 mg/L FEU (0.00-0.49) Sodium Level 142 MMOL/L (136-145) Potassium Level 3.8 MMOL/L (3.5-5.1) Chloride Level 106 MMOL/L (98-107) Carbon Dioxide Level 27 MMOL/L (21-32) Anion Gap 9 mmol/L (5-15) Blood Urea Nitrogen 15 mg/dL (7-18) Creatinine 1.0 MG/DL (0.55-1.30) Estimat Glomerular Filtration Rate > 60 mL/min (>60) Glucose Level 115 MG/DL (74-106) Calcium Level 9.6 MG/DL (8.5-10.1) Total Bilirubin 0.4 MG/DL (0.2-1.0) Aspartate Amino Transf (AST/SGOT) 13 U/L (15-37) Alanine Aminotransferase (ALT/SGPT) 16 U/L (12-78) Alkaline Phosphatase 58 U/L (46-116) Troponin I 0.000 ng/mL (0.000-0.056) Total Protein 6.8 G/DL (6.4-8.2) Albumin 3.3 G/DL (3.4-5.0) Globulin 3.5 g/dL Albumin/Globulin Ratio 0.9 (1.0-2.7) EKG Diagnostic Results Troponin ordered: Yes When was troponin ordered?: Jan 28, 2020 EKG Time: 13:35 Rate: normal - 78 bpm Rhythm: NSR ST Segments: no acute changes ASA given to the pt in ED: No PA Scribe Text This Interpretation was scribed by MEGHANN Kaur. Chest X-Ray Diagnostic Results Chest X-Ray Diagnostic Results : Chest X-Ray Ordered: Yes # of Views/Limited/Complete: 1 View Indication: Chest Pain EP Interpretation: Yes MEGHANN Xray: Interpretation reviewed, by supervising MD, and agrees with findings. Interpretation: no consolidation, no effusion, no pneumothorax, no acute cardiopulmonary disease Impression: No acute disease Electronically Signed by: Lorena Kaur PA-C Last Vital Signs Date Time Temp Pulse Resp B/P (MAP) Pulse Ox O2 Delivery O2 Flow Rate FiO2 01/28/20 13:33 90 18 Room Air 01/28/20 13:33 98.1 142/80 98 Status: improved Disposition: AGAINST MEDICAL ADVICE Condition: Unknown - Awaiting D-Dimer, Pt. signing AMA form Scripts Omeprazole (OMEPRAZOLE) 20 Mg Tablet.dr 20 MG ORAL DAILY, #30 TAB Prov: Lorena Kaur 01/28/20 Acetaminophen* (TYLENOL EXTRA STRENGTH*) 500 Mg Tablet 500 MG ORAL Q6H, #30 TAB 0 Refills Prov: Lorena Kaur 01/28/20 Famotidine* (Pepcid 20mg tablet*) 20 Mg Tablet 20 MG ORAL TWICE A DAY for Gerd for 10 Days, #20 TAB 0 Refills Prov: Lorena Kaur 01/28/20 Referrals: Sam Odom MD Patient Instructions: Nonspecific Chest Pain Additional Instructions: Take medications as directed. Follow up with a MULTI CRAFT MAINTENANCE TECHNICIAN and Primary Care Provider in 3-5 days, even if your symptoms have resolved. --Please review list of primary care clinics, if you do not already have a primary care provider Return sooner to ED if new symptoms occur, or current symptoms become worse. - Please note that this Emergency Department Report was dictated using [employer] technology software, occasionally this can lead to erroneous entry secondary to interpretation by the dictation equipment. Lorena Kaur Jan 28, 2020 14:03
[2020-01-28 14:09] LABS: BASOPHILS % (AUTO) 5.5 % (0.0-2.0); EOSINOPHILS % (AUTO) 1.9 % (0.0-3.0); HEMATOCRIT 39.8 % (42.0-52.0); HEMOGLOBIN 13.5 G/DL (14.2-18.0); LYMPHOCYTES % (AUTO) 21.7 % (20.0-45.0); MEAN CORPUSCULAR VOLUME 82 FL (80-99); MONOCYTES % (AUTO) 7.6 % (1.0-10.0); NEUTROPHILS % (AUTO) 63.4 % (45.0-75.0); PLATELET COUNT 263 K/UL (150-450); RED BLOOD COUNT 4.87 M/UL (4.70-6.10); RED CELL DISTRIBUTION WIDTH 12.8 % (11.6-14.8); WHITE BLOOD COUNT 4.7 K/UL (4.8-10.8)
[2020-01-28 14:21] LABS: ANION GAP 9 mmol/L (5-15); BLOOD UREA NITROGEN 15 mg/dL (7-18); CALCIUM 9.6 MG/DL (8.5-10.1); CARBON DIOXIDE 27 MMOL/L (21-32); CHLORIDE 106 MMOL/L (98-107); POTASSIUM 3.8 MMOL/L (3.5-5.1); SODIUM 142 MMOL/L (136-145)
[2020-01-28 14:23] LABS: ALANINE AMINOTRANSFERASE 16 U/L (12-78); ALBUMIN 3.3 G/DL (3.4-5.0); ALBUMIN/GLOBULIN RATIO 0.9 (1.0-2.7); ALKALINE PHOSPHATASE 58 U/L (46-116); ASPARTATE AMINO TRANSFERASE 13 U/L (15-37); BILIRUBIN,TOTAL 0.4 MG/DL (0.2-1.0)
[2020-01-28] MEDS ORDERED: Ketorolac 30mg Inj IV ONE (15:00)
--- NOTE | 2020-01-28 15:08 | Diagnostic Imaging Report ---
Indication: Chest pain Technique: One view of the chest Comparison: 11/27/2019 Findings: Lungs and pleural spaces are clear. The heart size is normal. There is no significant change Impression:
[2020-01-28] MEDS ORDERED: TYLENOL EXTRA500 MG ORAL (15:38)
[2020-01-28] MEDS ORDERED: OMEPRAZOLE20 M3 ORAL (15:38)
[2020-01-28] MEDS ORDERED: FAMOTIDINE20 MG ORAL (15:38)
--- NOTE | 2020-01-28 15:40 | NUR ---
ER DISCHARGE NOTE: IV site removed
[2020-01-28 15:45] VITALS: BP 135/76
--- NOTE | 2020-01-28 15:45 | NUR ---
AMA: pt wanted to leave instead, signed AMA form, See AMA FORM.
--- NOTE | 2020-01-29 16:21 | Cardiology Report ---
APPROVED REPORT EKG Measurement Heart [id number] [id number] <Conclusion> Normal sinus rhythm Normal ECG
== END 2020-01-28 15:45 | disposition left against medical advice (07) ==
LOC: EMR 14:07
DX: R07.9 Chest pain, unspecified (principal); Z53.29 Procedure and treatment not carried out because of patient's decision for other reasons; Z86.73 Personal history of transient ischemic attack (TIA), and cerebral infarction without residual deficits; Z85.46 Personal history of malignant neoplasm of prostate; Z79.82 Long term (current) use of aspirin; Z79.899 Other long term (current) drug therapy
CPT/HCPCS: 36415; 71045; 80053; 84484; 85025; 85379; 93005; 96374; 96375; 99284; J1885; S0028